=== PATIENT | male | born 2005 | race Caucasian/White ===

== ENCOUNTER 2025-07-29 16:21 | Emergency (ER) | payer BC, SELFPAY ==
[2025-07-29 16:24] VITALS: BP 133/75; PULSE 100; RESP 16; TEMP 37.3; O2SAT 100
--- NOTE | 2025-07-29 16:53 | ED_ITS ---
HPI - General Adult General Chief complaint: Unspecified Stated complaint: Asthma Episodes at night Time Seen by Provider: 07/29/25 16:30 Source: patient and RN notes reviewed Mode of arrival: ambulatory Limitations: no limitations History of Present Illness HPI narrative: 19-year-old male presents Express Care complaining of shortness of breath at night. Patient says over the last week he has been awoken by symptoms almost nightly. Patient says he will wake up feeling very short of breath and ?wheezing?. Patient also reports feeling chest tightness have a dry nonproductive when the episode occurs. Patient says he will then fall back sleep and wake up and feel normal again. Patient denies any shortness of breath during the day. Patient denies any symptoms currently. Patient denies any upper respiratory symptoms, cough, fevers, eczema chills, nausea vomiting, diarrhea, chest pains, or any other symptoms. Patient says he has a history of asthma but has not use medications over the last 2 years. Patient states he does not have a primary care provider. Related Data Allergies Allergy/AdvReac Type Severity Reaction Status Date / Time No Known Allergies Allergy Verified 07/29/25 16:40 Review of Systems Review of Systems: CONSTITUTIONAL: Denies fever, chills, or sweats. EYES: Denies visual changes, redness, or discharge. ENT: Denies rhinorrhea, congestion, sore throat, or otalgia. CARDIOVASCULAR: Denies chest pain, palpitations, or edema. RESPIRATORY: Positive for nocturnal cough and wheezing/dyspnea at night. GASTROINTESTINAL: Denies abdominal pain, nausea, vomiting, or diarrhea. GENITOURINARY: Denies dysuria or hematuria. SKIN: Denies rash or itching. MUSCULOSKELETAL: Denies back pain, joint pain, or myalgia. NEUROLOGIC: Denies headache, numbness, or weakness. PSYCHIATRIC: Denies anxiety or depression. All other systems reviewed are negative, except as documented in HPI. PMFSH Comments At the time of my signature, I reviewed and agree with the nursing past medical, surgical, social, and family history. There is no relevant family history pertinent to the patient complaint. Exam Narrative: GENERAL: This is a well-nourished, well-developed adult, in no apparent distress. They are non ill-appearing, nontoxic appearing. HEAD: normocephalic, atraumatic. EYES: Sclera clear/white. Conjunctiva normal. Vision is grossly intact. Extraocular movements intact EARS: External ears normal, auditory canals clear and without drainage, TMs normal without perforation. Hearing grossly intact. NOSE: External nose normal with no obvious nasal discharge, nasal turbinates without redness, no rhinorrhea. THROAT: Mucous membranes moist, posterior pharynx clear, without erythema or swelling. Uvula midline. NECK: Neck supple, non-tender without lymphadenopathy, masses or thyromegaly. CARDIOVASCULAR: Regular rate and rhythm without murmurs, gallops, or rubs. RESPIRATORY: Clear to auscultation. Breath sounds equal bilaterally. No wheezes, rales, or rhonchi. Respiratory rate normal, respiratory effort nonlabored, no respiratory distress SKIN: warm, Dry, intact with no suspicious lesions or rash, good texture and turgor. NEURO: awake, alert, and oriented to person, place and time. There were no obvious focal neurologic abnormalities. EXTREMITIES: No joint tenderness, effusion, or edema noted. BACK: Nontender without deformity. No CVA tenderness. Course Course Emergency Course: Portions of this record may have been created with voice recognition software Level of Care: Express Care Visit Vital Signs Vital signs: Vital Signs Temperature 99.2 F 07/29/25 16:24 Pulse Rate 100 07/29/25 16:24 Respiratory Rate 16 07/29/25 16:24 Blood Pressure 133/75 07/29/25 16:24 Pulse Oximetry 100 07/29/25 16:24 Oxygen Delivery Room Air 07/29/25 16:24 Temperature 99.2 F 07/29/25 16:24 Pulse Rate 100 07/29/25 16:24 Respiratory Rate 16 07/29/25 16:24 Blood Pressure 133/75 07/29/25 16:24 Pulse Oximetry 100 07/29/25 16:24 Oxygen Delivery Room Air 07/29/25 16:24 Reviewed Medical Decision Making MDM Narrative Medical decision making narrative: Patient nontoxic-appearing, in no apparent distress, no respiratory distress. Lung sounds clear to auscultation. Symptoms likely related to nocturnal asthma symptoms. Given that they are recurring nightly over the last week will give him a course of prednisone along with an albuterol inhaler. Patient given referral to PCP for further evaluation management. Patient also given a list of primary care providers to get himself established with lung. Strict ER precautions discussed especially if he develops worsening shortness of breath, chest pains that do not go away, breathing problems that do not resolve with albuterol inhaler, vomiting, or any serious concerns.. Discussed physical exam findings. Advised supportive measures and signs/symptoms to go to the ER. Pt is appropriate for outpt treatment and f/u. Differential Diagnosis Differential Diagnosis: Asthma exacerbation, anxiety, obstructive sleep apnea, nocturnal asthma, panic attacks Vital Signs Vital Signs: Vital Signs Temperature 99.2 F 07/29/25 16:24 Pulse Rate 100 07/29/25 16:24 Respiratory Rate 16 07/29/25 16:24 Blood Pressure 133/75 07/29/25 16:24 Pulse Oximetry 100 07/29/25 16:24 Oxygen Delivery Room Air 07/29/25 16:24 Temperature 99.2 F 07/29/25 16:24 Pulse Rate 100 07/29/25 16:24 Respiratory Rate 16 07/29/25 16:24 Blood Pressure 133/75 07/29/25 16:24 Pulse Oximetry 100 07/29/25 16:24 Oxygen Delivery Room Air 07/29/25 16:24 Critical Care Time Critical Care Time Critical Care Time: No Discharge Plan Discharge Clinical Impression: Nocturnal asthma symptoms 4 to 6 nights per week Patient Disposition: Home Condition: Stable Instructions: Asthma (ED) Additional Instructions: Use the albuterol inhaler as directed. Use with a spacer. Use of when you feel wheezing or short of breath. Take the prednisone as directed. You had a steps with a primary care provider to further manage her asthma symptoms. Please go to the ER if you develop worsening shortness of breath, breathing problems on improved with inhaler, chest pains, fevers, nausea, vomiting, or any serious concerns. Patient Language: Jamaican Prescriptions: New prednisone 20 mg tablet 40 mg PO DAILY 5 Days Qty: 10 0RF albuterol sulfate [Ventolin HFA] 90 mcg/actuation HFA aerosol inhaler 2 puff inhalation QID PRN (Reason: shortness of breath or wheezing) Qty: 8.5 0RF (DME) [employer] A[employer]ol [employer] Enhancer Spacer See Rx Instructions .Route Qty: 1 0RF Rx Instructions: As directed Follow-up/Referrals: Umang Aguirre MD [Physician, Family Practice] PHYSICIAN,SYSTEM SUPPORT TECHNICIAN [Primary Care Provider, Internal Medicine] Time of Disposition: 16:46
== END 2025-07-29 16:48 | disposition home or self-care (01) ==
DX: J45.909 Unspecified asthma, uncomplicated (principal)
CPT/HCPCS: 99203; G0463